=== PATIENT | male | born 1945 | race African-American/Black ===

== ENCOUNTER 2016-09-04 15:32 | Inpatient (IN) | payer MEDICARE, OTHER ==
[~2016-09-04] VITALS: Ht 175.3 cm; Wt 96.2 kg
[2016-09-04] MEDS ORDERED: ASPIRIN 81MG TABLET PO STA (16:04)
[2016-09-04 16:45] LABS: BASOPHILS % 0.6 % (0.0-2.0); EOSINOPHILS % 1.1 % (0.0-5.0); HEMOGLOBIN. 12.2 g/dL (14.0-18.0); MEAN CORPUSCULAR HEMOGLOBIN 28.4 pg (28.0-32.0); MEAN CORPUSCULAR VOLUME 86.3 fL (80.0-94.0); MEAN PLATELET VOLUME 9.7 fl (7.4-10.4); NEUTROPHILS % 82.3 % (40.0-76.0); PLATELET 211 x1000/uL (130-400); RED BLOOD CELL COUNT 4.28 mill/uL (4.7-6.1); RED CELL DISTRIBUTION WIDTH 15.9 % (11.6-14.6)
[2016-09-04 16:49] LABS: INR 1.1; PARTIAL THROMBOPLASTIN TIME 25.7 sec (24.0-34.0); PROTHROMBIN TIME 11.8 sec
[2016-09-04 16:57] LABS: CARBON DIOXIDE 34 mEq/L (21-32); CHLORIDE 99 mEq/L (98-107)
[2016-09-04 16:58] LABS: TROPONIN I < 0.02 ng/mL (0.00-0.04)
[2016-09-04] MEDS ORDERED: POTASSIUM CHLORIDE 20MEQ TABLET SR PO ONE (17:30)
[2016-09-04 18:42] LABS: CLARITY URINE CLOUDY (CLEAR); COLOR URINE DARK YELLOW (YELLOW); GLUCOSE URINE NEGATIVE (NEGATIVE); KETONES URINE NEGATIVE (NEGATIVE); LEUKOCYTE ESTERASE URINE NEGATIVE (NEGATIVE); NITRITE URINE NEGATIVE (NEGATIVE); OCCULT BLOOD URINE TRACE (NEGATIVE); PROTEIN URINE 2+ (NEGATIVE)
[2016-09-04 21:15] VITALS: BP 180/96
[2016-09-04 21:45] VITALS: BP 180/96
[2016-09-04] MEDS ORDERED: LISI10TA5 PO (21:47)
[2016-09-04] MEDS ORDERED: ASPI-1159 PO (21:47)
[2016-09-04] MEDS ORDERED: GUAIFENESIN 200MG/10ML SUGAR FREE UDC PO PRN (22:30)
[2016-09-04] MEDS ORDERED: MAGNESIUM/ALUMINUM HYDROXIDE/SIMETHICONE 30ML UDC PO PRN (22:30)
[2016-09-04] MEDS ORDERED: ACETAMINOPHEN 325MG TABLET PO PRN (22:30)
[2016-09-04] MEDS ORDERED: DIPHENHYDRAMINE 50MG/ML VIAL IV PRN (22:30)
[2016-09-04] MEDS ORDERED: AMLODIPINE 5MG TABLET PO NR (23:00)
[2016-09-04] MEDS ORDERED: HYDRALAZINE 20MG/ML VIAL IV PRN (23:00)
[2016-09-04] MEDS ORDERED: LISINOPRIL 10MG TABLET PO NR (23:00)
[2016-09-04] MEDS ORDERED: POTASSIUM CHLORIDE 20MEQ TABLET SR PO NR (23:15)
[2016-09-05] VITALS (11 sets, daily range): BP systolic 110–193; BP diastolic 65–118
[2016-09-05] MEDS ORDERED: POTASSIUM CHLORIDE 20MEQ TABLET SR PO NR (01:30)
[2016-09-05] MEDS: SODIUM CHLORIDE 0.9% INJ 3ML FLUSH IVF SCH ×3 (05:40→21:32)
[2016-09-05 06:25] LABS: BASOPHILS % 0.9 % (0.0-2.0); EOSINOPHILS % 3.5 % (0.0-5.0); HEMATOCRIT. 36.6 % (42.0-52.0); HEMOGLOBIN. 12.3 g/dL (14.0-18.0); LYMPHOCYTES % 27.4 % (20.0-50.0); MEAN CORPUSCULAR HEMOGLOBIN 29.1 pg (28.0-32.0); MEAN CORPUSCULAR VOLUME 86.7 fL (80.0-94.0); MONOCYTES % 9.4 % (2.0-8.0); NEUTROPHILS % 58.8 % (40.0-76.0); PLATELET 201 x1000/uL (130-400); RED BLOOD CELL COUNT 4.22 mill/uL (4.7-6.1)
[2016-09-05 07:09] LABS: CARBON DIOXIDE 31 mEq/L (21-32); CHLORIDE 102 mEq/L (98-107)
[2016-09-05] MEDS ORDERED: LISINOPRIL 10MG TABLET PO SCH (09:00)
[2016-09-05] MEDS: AMLODIPINE 5MG TABLET PO SCH ×2 (09:05→21:00)
[2016-09-05] MEDS: FUROSEMIDE 40MG/4ML VIAL IVP SCH (09:05)
[2016-09-05] MEDS ORDERED: METHYLPREDNISOLONE SOD SUCC 125 MG/2 ML VIAL IV NR (20:00)
[2016-09-05] MEDS ORDERED: FAMOTIDINE 20MG/2ML VIAL IV NR (20:00)
[2016-09-05] MEDS ORDERED: DIPHENHYDRAMINE 50MG/ML VIAL IV NR ×2 (20:00→23:45)
[2016-09-05] MEDS ORDERED: CLONIDINE 0.1MG TABLET PO PRN (23:44)
[2016-09-05] MEDS: METHYLPREDNISOLONE SOD SUCC 125 MG/2 ML VIAL IV SCH (23:52)
[2016-09-05] MEDS: HYDRALAZINE 20MG/ML VIAL IV PRN (23:52)
[2016-09-06] VITALS (31 sets, daily range): BP systolic 102–201; BP diastolic 40–130
[2016-09-06] MEDS: ONDANSETRON HCL 4MG/2ML VIAL IV PRN ×2 (00:04→07:53)
[2016-09-06] MEDS: DIPHENHYDRAMINE 50MG/ML VIAL IV SCH ×4 (02:40→20:43)
[2016-09-06 05:09] LABS: HEMATOCRIT. 46.7 % (42.0-52.0); HEMOGLOBIN. 15.7 g/dL (14.0-18.0); MEAN CORPUSCULAR HEMOGLOBIN 28.7 pg (28.0-32.0); MEAN CORPUSCULAR VOLUME 85.3 fL (80.0-94.0); MEAN PLATELET VOLUME 10.1 fl (7.4-10.4); PLATELET 309 x1000/uL (130-400); RED BLOOD CELL COUNT 5.47 mill/uL (4.7-6.1)
[2016-09-06 05:21] LABS: CARBON DIOXIDE 26 mEq/L (21-32); CHLORIDE 103 mEq/L (98-107)
[2016-09-06] MEDS: SODIUM CHLORIDE 0.9% INJ 3ML FLUSH IVF SCH ×3 (05:24→20:47)
[2016-09-06] MEDS: METHYLPREDNISOLONE SOD SUCC 125 MG/2 ML VIAL IV SCH ×2 (05:41→12:57)
[2016-09-06] MEDS: FAMOTIDINE 20MG/2ML VIAL IV SCH ×2 (07:51→20:43)
[2016-09-06] MEDS: FUROSEMIDE 40MG/4ML VIAL IVP SCH (07:51)
[2016-09-06] MEDS: AMLODIPINE 5MG TABLET PO SCH ×2 (07:53→20:44)
[2016-09-06 08:22] LABS: PLATELET ESTIMATE NORMAL
[2016-09-06] MEDS ORDERED: POTASSIUM CHLORIDE 20MEQ/PACKET PO NR (08:43)
[2016-09-06] MEDS ORDERED: LORAZEPAM 2MG/ML CPJ IV PRN (08:45)
[2016-09-06] MEDS: HYDRALAZINE 20MG/ML VIAL IV PRN (14:39)
[2016-09-06] MEDS: ENOXAPARIN 30MG/0.3ML SYR SUBCUT SCH (20:44)
[2016-09-07] VITALS: BP 140/86
[2016-09-07] MEDS: DIPHENHYDRAMINE 50MG/ML VIAL IV SCH ×3 (01:43→13:44)
[2016-09-07 04:00] VITALS: BP 140/90
[2016-09-07] MEDS: SODIUM CHLORIDE 0.9% INJ 3ML FLUSH IVF SCH ×2 (06:03→13:44)
[2016-09-07 08:00] VITALS: BP 145/100
[2016-09-07] MEDS: FUROSEMIDE 40MG/4ML VIAL IVP SCH (08:33)
[2016-09-07] MEDS: FAMOTIDINE 20MG/2ML VIAL IV SCH (08:33)
[2016-09-07] MEDS: AMLODIPINE 5MG TABLET PO SCH (08:34)
[2016-09-07] MEDS: ENOXAPARIN 30MG/0.3ML SYR SUBCUT SCH (08:34)
[2016-09-07 12:00] VITALS: BP 126/89
[2016-09-07 16:07] VITALS: BP 132/87
[2016-09-07 17:19] VITALS: BP 132/87
== END 2016-09-07 17:55 | disposition home or self-care (01) | DRG 291 ==
LOC: ER 16:40 → 7WST 18:51 → EDBEDREQ 18:54 → ENRESERV 19:57 → CVICU 09-05 23:19 → 6WST 09-06 14:53
PROVIDERS: ADMIT Internal Medicine; ATTEND Internal Medicine
DX: I13.0 Hypertensive heart and chronic kidney disease with heart failure and stage 1 through stage 4 chronic kidney disease, or unspecified chronic kidney disease (principal); I50.33 Acute on chronic diastolic (congestive) heart failure; F11.23 Opioid dependence with withdrawal; E87.6 Hypokalemia; I49.9 Cardiac arrhythmia, unspecified; N18.9 Chronic kidney disease, unspecified; R73.03 Prediabetes; T50.2X5A Adverse effect of carbonic-anhydrase inhibitors, benzothiadiazides and other diuretics, initial encounter; Z79.82 Long term (current) use of aspirin; Z79.899 Other long term (current) drug therapy
CPT/HCPCS: 36415; 71010; 80048; 80053; 81001; 82962; 83036; 83735; 83880; 84443; 84484; 85025; 85610; 85730; 93005; 93306; 93970; 99285; J0360; J1200; J1650; J1940; J2060; J2405; J2930; J3490